=== PATIENT | male | born 1980 ===

== ENCOUNTER 2017-12-20 19:32 | Emergency (ER) | payer OTHER ==
[2017-12-20 19:58] VITALS: BP 140/82; PULSE 78; RESP 16; TEMP 98.5; O2SAT 99
--- NOTE | 2017-12-20 20:27 | ED PDOC ---
Lower Extremity Pain/Injury Time Seen by Provider: 12/20/17 20:06 Chief Complaint (Nursing): Lower Extremity Problem/Injury Chief Complaint (Provider): bilateral foot pain History Per: Patient History/Exam Limitations: no limitations Onset/Duration Of Symptoms: Days (2 weeks) Current Symptoms Are (Timing): Still Present Additional Complaint(s): 37 y/o male presents with bilateral foot pain/burning inbetween toes x 2 weeks. Patient states he has been applying [id number] antibacterial cream with little improvement. Denies fever, redness/swelling to feet. Patient also notes left eye irritation/itching x 1 week, states he was in [place] and was applying antibiotic drops with improvement; notes some drainage and crusting in the morning. Denies headache, vision changes, eye pain, FB sensation. Past Medical History Reviewed: Historical Data, Nursing Documentation, Vital Signs Vital Signs: Last Vital Signs Temp 98.5 F 12/20/17 19:53 Pulse 78 12/20/17 19:53 Resp 16 12/20/17 19:53 BP 140/82 12/20/17 19:53 Pulse Ox 99 12/20/17 19:53 - Medical History PMH: Asthma, Diabetes - Family History Family History: States: Unknown Family Hx - Home Medications Home Medications: Ambulatory Orders Medication Instructions Recorded Cyclobenzaprine [Cyclobenzaprine 10 mg PO BID #14 tab 02/13/16 HCl] Ibuprofen [Motrin] 400 mg PO Q6 #30 tab 02/13/16 Polymyxin/Trimethoprim Sulfate 100 drop OD BID #1 bottle 02/13/16 [Polytrim Ophth Soln] Clotrimazole 1% Cream [Lotrimin 1%] 1 applic TP BID #1 tube 12/20/17 Erythromycin 0.5% [Erythromycin] 1 applic OS Q6 #1 tube 12/20/17 - Allergies Allergies/Adverse Reactions: Allergies Allergy/AdvReac Type Severity Reaction Status Date / Time aspirin [From [facility]] Allergy RASH Verified 12/20/17 19:53 citric acid Allergy RASH Verified 12/20/17 19:53 [From [facility]] sodium bicarbonate Allergy RASH Verified 12/20/17 19:53 [From [facility]] Review of Systems ROS Statement: Except As Marked, All Systems Reviewed And Found Negative Eyes: Positive for: Eyelid Inflammation Musculoskeletal: Positive for: Foot Pain Physical Exam - Reviewed Nursing Documentation Reviewed: Yes Vital Signs Reviewed: Yes - Physical Exam Appears: Positive for: Well, Non-toxic, No Acute Distress Head Exam: Positive for: ATRAUMATIC, NORMAL INSPECTION, NORMOCEPHALIC Skin: Positive for: Normal Color Eye Exam: Positive for: Other (erythematous, dry skin noted left upper and lower lid, with swelling over lacrimal duct; no drainage, conjunctival injection , noted). Negative for: Conjunctival injection ENT: Positive for: Normal ENT Inspection Cardiovascular/Chest: Positive for: Regular Rate, Rhythm Respiratory: Positive for: Normal Breath Sounds Pulses-Dorsalis Pedis (L): 2+ Pulses-Dorsalis Pedis (R): 2+ Pulses-Post. Tibialis (L): 2+ Pulses-Post. Tibialis (R): 2+ Extremity: Positive for: Normal ROM, Capillary Refill, Other (erythematous erosions/maceration interdigits 3-5 bilateral feet. No odor, drainage, steaking erythema noted). Negative for: Pedal Edema, Deformity - ECG O2 Sat by Pulse Oximetry: 99 - Progress ED Course And Treament: accucheck Patient educated on findings, rx Clotrimazole, Erytheromycin opth ointment provided. Advised follow up podiatry, optho. Warm compresses to eye. Return precautions given Disposition - Clinical Impression Clinical Impression: Tinea pedis, Blepharitis of left eye - Patient ED Disposition Is Patient to be Admitted: No Counseled Patient/Family Regarding: Diagnosis, Need For Followup, Rx Given - Disposition Referrals: Podiatry Clinic [Outside] Moe Laura MD [Staff Provider] - Disposition: Routine/Home Disposition Time: 20:54 Condition: IMPROVED Additional Instructions: Apply warm compresses to affected area of left eye. Apply cream to affected areas of feet. Follow up with podiatry, optho. Return to ED for worsening/concerning symptoms. Prescriptions: Clotrimazole 1% Cream [Lotrimin 1%] 1 applic TP BID #1 tube Erythromycin 0.5% [Erythromycin] 1 applic OS Q6 #1 tube Instructions: Athlete's Foot, Blepharitis Forms: [employer] (Latvian)
== END 2017-12-20 21:05 | disposition home or self-care (01) ==
LOC: H.ER 19:32
DX: B35.3 Tinea pedis (principal); H01.006 Unspecified blepharitis left eye, unspecified eyelid; E11.9 Type 2 diabetes mellitus without complications; J45.909 Unspecified asthma, uncomplicated

== ENCOUNTER 2018-07-29 21:01 | Emergency (ER) | payer OTHER ==
[2018-07-29 21:26] VITALS: BP 153/99; PULSE 90; RESP 17; TEMP 98.4; O2SAT 96
--- NOTE | 2018-07-29 21:37 | ED PDOC ---
HPI: General Adult Chief Complaint (Provider): rash History Per: Patient Additional Complaint(s): 38-year-old male presents with pain and rash around distal aspect of the penis for 2 days. Patient has noticed discharge collecting underneath foreskin. He denies dysuria or penile discharge. Patient has also noted swelling. No fever or chills, no abdominal pain, nausea, vomiting, diarrhea or constipation. Patient denies concern for STD as he is currently not sexually active. PMD: Dr. Knowles <Flor Kelley - Last Filed: 07/29/18 22:45> <Marlene So - Last Filed: 07/30/18 00:10> Time Seen by Provider: 07/29/18 21:36 Chief Complaint (Nursing): Abnormal Skin Integrity Supervising Attending Note - Attestation: I have personally seen and examined this patient.: No I have reviewed all pertinent clinical information, including history, physical exam and plan: Yes <Marlene So - Last Filed: 07/30/18 00:10> Past Medical History Reviewed: Historical Data, Nursing Documentation, Vital Signs Vital Signs: Last Vital Signs Temp 98.4 F 07/29/18 21:23 Pulse 90 07/29/18 21:23 Resp 17 07/29/18 21:23 BP 153/99 H 07/29/18 21:23 Pulse Ox 96 07/29/18 21:23 - Medical History PMH: Asthma, Diabetes - Family History Family History: States: No Known Family Hx - Living Arrangements Living Arrangements: With Family - Social History Current smoker - smoking cessation education provided: No Alcohol: None Drugs: Denies <Flor Kelley - Last Filed: 07/29/18 22:45> Vital Signs: Last Vital Signs Temp 98.4 F 07/29/18 21:23 Pulse 90 07/29/18 21:23 Resp 17 07/29/18 21:23 BP 153/99 H 07/29/18 21:23 Pulse Ox 96 07/29/18 23:14 <Marlene So F - Last Filed: 07/30/18 00:10> - Home Medications Home Medications: Ambulatory Orders Medication Instructions Recorded Cyclobenzaprine [Cyclobenzaprine 10 mg PO BID #14 tab 02/13/16 HCl] Ibuprofen [Motrin] 400 mg PO Q6 #30 tab 02/13/16 Polymyxin/Trimethoprim Sulfate 100 drop OD BID #1 bottle 02/13/16 [Polytrim Ophth Soln] RX: Clotrimazole 1% Cream 1 applic TP BID #1 tube 12/20/17 [Lotrimin 1%] RX: Erythromycin 0.5% 1 applic OS Q6 #1 tube 12/20/17 [Erythromycin] Amoxicillin/Clavulanate [Augmentin 1 tab PO BID #14 tab 07/29/18 875 MG-125 MG] RX: Clotrimazole 1% Cream 1 gm TP BID #1 tube 07/29/18 [Lotrimin 1%] - Allergies Allergies/Adverse Reactions: Allergies Allergy/AdvReac Type Severity Reaction Status Date / Time aspirin [From [facility]] Allergy RASH Verified 07/29/18 21:26 citric acid Allergy RASH Verified 07/29/18 21:26 [From [facility]] sodium bicarbonate Allergy RASH Verified 07/29/18 21:26 [From [facility]] Review of Systems ROS Statement: Except As Marked, All Systems Reviewed And Found Negative Constitutional: Negative for: Fever, Chills Gastrointestinal: Negative for: Abdominal Pain Genitourinary Male: Positive for: Penile Pain <Amsellem,Flor - Last Filed: 07/29/18 22:45> Physical Exam - Reviewed Nursing Documentation Reviewed: Yes Vital Signs Reviewed: Yes - Physical Exam Appears: Positive for: Well, Non-toxic, No Acute Distress Skin: Positive for: Normal Color. Negative for: Rash Eye Exam: Positive for: Normal appearance Cardiovascular/Chest: Positive for: Regular Rate, Rhythm Respiratory: Positive for: Normal Breath Sounds. Negative for: Wheezing, Respiratory Distress Gastrointestinal/Abdominal: Positive for: Soft. Negative for: Tenderness, Distended, Guarding, Rebound Male Genital Exam: Positive for: other (uncircumised penis with swelling and mild erythema to glans penis, mild amount of discharge noted under foreskin, no urtethral discharge, non tender scrotum) Extremity: Positive for: Normal ROM Neurologic/Psych: Positive for: Alert, Oriented <Amsellem,Flor - Last Filed: 07/29/18 22:45> - Laboratory Results Urine dip results: Negative for: Leukocyte Esterase, Blood, Nitrate, Ketones, Glucose, Bilirubin, Protein - ECG O2 Sat by Pulse Oximetry: 96 Pulse Ox Interpretation: Normal <Flor Kelley - Last Filed: 07/29/18 22:45> Medical Decision Making Medical Decision Making: Impression: balanatis Plan: Initial dose augmentin given in ED. Patient given prescriptions for Augmentin and clotrimazole cream. He was advised to keep area clean and dry. Patient was referred to urologist for follow-up. <Flor Kelley - Last Filed: 07/29/18 22:45> Disposition - Patient ED Disposition Is Patient to be Admitted: No Counseled Patient/Family Regarding: Diagnosis, Need For Followup, Rx Given - Disposition Disposition: Routine/Home Disposition Time: 22:46 <Flor Kelley - Last Filed: 07/29/18 22:45> <Marlene So - Last Filed: 07/30/18 00:10> - Clinical Impression Clinical Impression: Balanitis - Disposition Referrals: Angel Zhu MD [Medical Doctor] - Condition: STABLE Additional Instructions: Keep area clean and dry. Take prescription meds as directed. Follow-up with primary doctor or urologist for any persistent symptoms. Prescriptions: Amoxicillin/Clavulanate [Augmentin 875 MG-125 MG] 1 tab PO BID #14 tab RX: Clotrimazole 1% Cream [Lotrimin 1%] 1 gm TP BID #1 tube Instructions: Balanitis (DC) Forms: [employer] (Nauruan)
[2018-07-29] MEDS ORDERED: Amoxicillin-Clav 875-125 mg Tab PO STA (22:07)
[2018-07-29] MEDS ORDERED: Amoxicillin-Clav 875-125 mg Tab PO ONE (22:33)
== END 2018-07-29 22:56 | disposition home or self-care (01) ==
LOC: H.ER 21:01
DX: N48.1 Balanitis (principal); E11.9 Type 2 diabetes mellitus without complications; Z79.899 Other long term (current) drug therapy